=== PATIENT | female | born 1945 | race Caucasian/White ===

== ENCOUNTER 2017-05-12 10:33 | Emergency (ER) | payer MEDICARE ==
--- NOTE | 2017-05-12 12:09 | RAD ---
HISTORY: Right hand pain COMPARISONS: None relevant VIEWS: 2, Frontal, lateral, and oblique views of the right hand FINDINGS: BONE DENSITY: Normal. BONES: There is a comminuted fracture of the distal radial metaphysis. JOINTS: There is osteoporosis of the first CMC and scaphoid trapezium articulations. ALIGNMENT: There is no dislocation. SOFT TISSUES: Unremarkable. OTHER FINDINGS: None. IMPRESSION: COMMINUTED FRACTURE OF THE DISTAL RADIAL METAPHYSIS.
--- NOTE | 2017-05-12 12:11 | RAD ---
HISTORY: Right wrist pain, trauma COMPARISONS: None VIEWS: 3, Frontal, lateral, and oblique views of the right wrist FINDINGS: BONE DENSITY: There is diffuse osteopenia. BONES: There is a comminuted nondisplaced fracture of the distal radial metaphysis. JOINTS: There is osteoarthritis of the first CMC, radiocarpal, and scaphoid trapezium articulations. ALIGNMENT: There is no dislocation. SOFT TISSUES: Unremarkable. OTHER FINDINGS: None. IMPRESSION: 1. COMMINUTED FRACTURE OF THE DISTAL RADIAL METAPHYSIS. 2. OSTEOPENIA. 3. OSTEOARTHRITIS.
--- NOTE | 2017-05-12 12:13 | RAD ---
INDICATION: Low back and tailbone pain after falling off of a stool COMPARISON: CTA abdomen and pelvis dated October 15, 2015 TECHNIQUE: 3 views of the lumbar spine and 3 views of the sacrum and coccyx were obtained. FINDINGS: The visualized bones exhibit diffuse demineralization. Degenerative changes of the lumbar spine include loss of intervertebral disc height. There is no definite compression fracture or dislocation. At approximately the S4/S5 level there is a focus of cortical discontinuity at the posterior margin of the sacrum which could represent a nondisplaced fracture in the correct clinical setting. Postsurgical changes include an anatomically aligned right hip prosthesis and surgical material at the midline pelvis. Incidentally noted is coarse calcification of the abdominal aorta extending into the iliac arteries. IMPRESSION: 1. Possible nondisplaced fracture involving the posterior cortex of the sacrum at the S4/S5 level. Please correlate to the focality of the patient's pain. 2. Chronic, degenerative and postsurgical findings described in the body the report.
[2017-05-12] MEDS ORDERED: Lidocaine 1% INJ* 10 MG/ML 30 ML SDV ONE (12:31)
[2017-05-12] MEDS ORDERED: HYDROcodone/ACETAMIN 5-325 MG* 1 TAB ONE (12:47)
[2017-05-12] MEDS ORDERED: Lidocaine 1% INJ* 10 MG/ML 30 ML SDV INJ ONE (12:48)
[2017-05-12] MEDS ORDERED: HYDROcodone/ACETAMIN 5-325 MG* 1 TAB PO ONE (12:48)
--- NOTE | 2017-05-12 13:29 | RAD ---
Indication: Right radius fracture. 2 views of the right radius demonstrates osteopenia. There is reduction of previously seen fracture. Osteopenia is noted. IMPRESSION: Osteopenia distal radius. Reduction of previously identified fracture.
[2017-05-12 13:49] VITALS: BP 107/64
--- NOTE | 2017-05-13 08:28 | ED ---
Hola Prather Angela, scribed for John Palumbo MD on 05/12/17 at 1125 . Upper Extremity Pain - HPI Summary HPI Summary: This pt is a 72 y/o female presenting to [facility] c/o right hand and wrist pain s/ p fall yesterday. Pt reports she was hanging [place] lights up while standing on a stool when she fell. She notes right wrist swelling. Pt has been using ice on her wrist/hand with no relief. Her pain is aggravated with movement. Pt additionally c/o lower spine pain after fall. She denies neck pain, nausea, vomiting. - History of Current Complaint Chief Complaint: EDExtremityUpper Stated Complaint: FALL/RT ARM & LOW BACK INJURY Time Seen by Provider: 05/12/17 11:22 Hx Obtained From: Patient Mechanism Of Injury: Fall From Height Of: - a stool Onset/Duration: Started Days Ago - 1, Traumatic, Still Present Timing: Constant, Lasting Days - 1 Severity Currently: Severe Pain Location: Wrist - right, Hand - right Aggravating Factor(s): Movement Associated Signs & Symptoms: Positive: Swelling, Back Pain - lower spine pain. Negative: Neck Pain, Nausea, Vomiting - Allergies/Home Medications Allergies/Adverse Reactions: Allergies Allergy/AdvReac Type Severity Reaction Status Date / Time Amoxicillin [From Augmentin] Allergy Unknown Unknown Verified 04/15/16 11:41 Reaction Details Aspirin Allergy Unknown Unknown Verified 04/15/16 11:41 Reaction Details Clavulanic Acid Allergy Unknown Unknown Verified 04/15/16 11:41 [From Augmentin] Reaction Details PMH/Surg Hx/FS Hx/Imm Hx Endocrine/Hematology History: Denies: Hx Diabetes, Hx Systemic Lupus Erythematosus Cardiovascular History: Reports: Hx Hypertension Denies: Hx Congestive Heart Failure, Hx Pacemaker/ICD, Other Cardiovascular Problems/Disorders Respiratory History: Reports: Hx Chronic Obstructive Pulmonary Disease (COPD) GI History: Reports: Hx Gastroesophageal Reflux Disease, Other GI Disorders - DIVERTICULITIS History: Reports: Hx Kidney Stones Denies: Hx Dialysis, Hx Renal Disease Musculoskeletal History: Reports: Hx Arthritis - RHEUMATOID ARTHRITIS ALL OVER, Hx Rheumatoid Arthritis Sensory History: Reports: Hx Contacts or Glasses - GLASSES Denies: Hx Hearing Aid Opthamlomology History: Reports: Hx Contacts or Glasses - GLASSES Psychiatric History: Denies: Hx Panic Disorder - Cancer History Hx Chemotherapy: No - Surgical History Surgery Procedure, Year, and Place: TONSILECTOMY A CHILD, [facility]. APPENDECTOMY- 1996, [facility] LEFT CYST HAND. RESECTION -BOWEL WITH COLOSTOMY,. 1997. Lt HIP -FX WITH PINNING 2008. left femur fracture and repair. FEMUR FX [facility]. COLOSTOMY REVERSED [facility]. Lt FEMUR -FX. LT ANKLE- FX. lithotrypsy Hx Anesthesia Reactions: No Infectious Disease History: No Infectious Disease History: Denies: Traveled Outside the [place] in Last 30 Days - Family History Known Family History: Positive: Cardiac Disease - Social History Alcohol Use: Weekly Alcohol Amount: 3-4 PER WEEK Substance Use Type: Reports: None Smoking Status (MU): Current Every Day Smoker Amount Used/How Often: PACK A DAY Have You Smoked in the Last Year: Yes Review of Systems Negative: Fever, Chills Eyes: Negative ENT: Negative Negative: Vomiting, Nausea Musculoskeletal: Other - right wrist pain, right hand pain, lower back pain Positive: Edema - on right wrist Skin: Negative Neurological: Negative All Other Systems Reviewed And Are Negative: Yes Physical Exam - Summary Physical Exam Summary: VITAL SIGNS: Reviewed. GENERAL: Patient is a very thin female who is lying comfortable in the stretcher. Patient is not in any acute respiratory distress. HEAD AND FACE: No signs of trauma. No ecchymosis, hematomas or skull depressions. No sinus tenderness. EYES: PERRLA, EOMI x 2, No injected conjunctiva, no nystagmus. EARS: Hearing grossly intact. Ear canals and tympanic membranes are within normal limits. MOUTH: Oropharynx within normal limits. NECK: Supple, trachea is midline, no adenopathy, no JVD, no carotid bruit, no c- spine tenderness, neck with full ROM. CHEST: Symmetric, no tenderness at palpation LUNGS: Clear to auscultation bilaterally. No wheezing or crackles. CVS: Regular rate and rhythm, S1 and S2 present, no murmurs or gallops appreciated. ABDOMEN: Soft, non-tender. No signs of distention. No rebound no guarding, and no masses palpated. Bowel sounds are normal. EXTREMITIES: No cyanosis or clubbing. RUE: right wrist deformity, swelling and erythema. Mild paraspinal tenderness in the lumbar spine. NEURO: Alert and oriented x 3. No acute neurological deficits. Speech is normal and follows commands. SKIN: Dry and warm. GCS: 15 Triage Information Reviewed: Yes Vital Signs On Initial Exam: Initial Vitals Temp Pulse Resp BP Pulse Ox 98.0 F 88 16 109/68 90 05/12/17 11:06 05/12/17 11:06 05/12/17 11:06 05/12/17 11:06 05/12/17 11:06 Vital Signs Reviewed: Yes Procedures - Joint Reduction Joint Reduction Site: other Specify Other Joint Reduced: Right radius metaphysis Conscious Sedation: No Pre-Procedure NV Exam: Yes - Pre and post procedure pt is neurovascular intact. Post Joint Reduction Film: joint reduced Diagnostics - Vital Signs Vital Signs Temp Pulse Resp BP Pulse Ox 05/12/17 11:06 98.0 F 88 16 109/68 90 - Laboratory Lab Statement: Any lab studies that have been ordered have been reviewed, and results considered in the medical decision making process. - Radiology Right hand XR Xray Interpretation: Positive (See Comments) - IMPRESSION: Comminuted fracture of the distal radial metaphysis. ED physician has reviewed this radiology report and agrees. Radiology Interpretation Completed By: Radiologist Right wrist XR Xray Interpretation: Positive (See Comments) - IMPRESSION: 1. Comminuted fracture of the distal radial metaphysis. 2. Osteopenia. 3. Osteoarthritis. ED physician has reviewed this radiology report and agrees. Radiology Interpretation Completed By: Radiologist Lumbar spine XR Xray Interpretation: Positive (See Comments) - IMPRESSION: 1. Possible nondisplaced fracture involving the posterior cortex of the sacrum at the S4/S5 level. Please correlate to the focality of the patient's pain. 2. Chronic, degenerative and postsurgical findings described in the body the report. ED physician has reviewed this radiology report and agrees. Radiology Interpretation Completed By: Radiologist Sacrum and Coccyx XR Xray Interpretation: Positive (See Comments) - IMPRESSION: 1. Possible nondisplaced fracture involving the posterior cortex of the sacrum at the S4/S5 level. Please correlate to the focality of the patient's pain. 2. Chronic, degenerative and postsurgical findings described in the body the report. ED physician has reviewed this radiology report and agrees. Radiology Interpretation Completed By: Radiologist Re-Evaluation - Re-Evaluation First Eval Re-Evaluation Time: 12:40 Comment: Reduction of fracture on right arm. Course/Dx - Course Assessment/Plan: This pt is a 72 y/o female presenting to [facility] c/o right hand and wrist pain s/p fall yesterday. Pt reports she was hanging [place] lights up while standing on a stool when she fell. She notes right wrist swelling. Pt has been using ice on her wrist/hand with no relief. Her pain is aggravated with movement. Pt additionally c/o lower spine pain after fall. She denies neck pain, nausea, vomiting, urinary or bowel incontinence. Right wrist XR shows 1. Comminuted fracture of the distal radial metaphysis. 2. Osteopenia. 3. Osteoarthritis. Right hand XR shows Comminuted fracture of the distal radial metaphysis. Lumbar spine and sacrum and coccyx XRs show 1. Possible nondisplaced fracture involving the posterior cortex of the sacrum at the S4/S5 level. Please correlate to the focality of the patient's pain. 2. Chronic, degenerative and postsurgical findings described in the body the report. In the ED course, I did a block with lidocaine and attempted to reduce the fracture. Pt tolerated well. The pt was placed on a splint. After placement of the splint, pt was neurovascular intact. I discussed the case with Dr. Stuart who recommends for the pt to be discharged and follow up with Dr. Roy. P twill be discharged home with follow up rom Dr. Roy. Pt is hemodynamically stable, alert and oriented x3. - Diagnoses Differential Diagnosis/HQI/PQRI: Positive: Contusion, Fracture (Closed), Strain , Sprain Provider Diagnoses: Comminuted fracture, distal radial metaphysis, Right radial fracture - Physician Notifications Discussed Care of Patient With: Lonny Stuart Time Discussed With Above Provider: 13:08 Instructed by Provider To: Other - I discussed the pt's case with Dr. Stuart, who reports that a post-reduction XR is not needed. He recommends the pt to follow up with Dr. Roy, orthopedist. Discharge - Discharge Plan Condition: Stable Disposition: HOME Patient Education Materials: Arm Fracture in Adults (ED) Referrals: Kannan Roy MD [Medical Doctor] - Cuca Callahan NP [Primary Care Provider] - Additional Instructions: Please follow up with Dr. Roy, orthopedist. RETURN TO THE ED FOR ANY WORSENING OR NEW SYMPTOMS. The documentation as recorded by the Hola mcleod Angela accurately reflects the service I personally performed and the decisions made by me, John Palumbo MD.
== END 2017-05-12 13:30 | disposition home or self-care (01) ==
LOC: ED 10:33
DX: S52.501A Unspecified fracture of the lower end of right radius, initial encounter for closed fracture (principal); M54.9 Dorsalgia, unspecified; R60.9 Edema, unspecified; F17.210 Nicotine dependence, cigarettes, uncomplicated; W07.XXXA Fall from chair, initial encounter; Y93.89 Activity, other specified; Y92.9 Unspecified place or not applicable
CPT/HCPCS: 25605; 72100; 72220; 99282